=== PATIENT | male | born 2005 | race Caucasian/White ===

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

== ENCOUNTER → 2023-05-11 | Outpatient (CLI) | payer MEDICAID ==
[2023-05-11 20:38] LABS: Thyroid Peroxidase Antibodies <9.0 U/mL (0.0-33.0)
[2023-05-11 21:15] LABS: C Reactive Protein <0.30 mg/dL (0.00-0.80); T4, Free (Free Thyroxine) 1.33 ng/dL (0.83-1.43)
--- NOTE | 2023-05-12 07:59 | XR ---
EXAMINATION TYPE: XR chest 2V DATE OF EXAM: 05/11/2023 COMPARISON: 01/18/2006 INDICATION: Short of breath asthma TECHNIQUE: Frontal and lateral views of the chest are obtained. FINDINGS: The heart size is normal. The pulmonary vasculature is normal. The lungs are clear. IMPRESSION: 1. No acute pulmonary process.
== END | disposition home or self-care (01) ==
LOC: LABWHC1 15:36
PROVIDERS: ATTEND Internal Medicine
DX: E05.90 Thyrotoxicosis, unspecified without thyrotoxic crisis or storm (principal); R00.0 Tachycardia, unspecified; Z80.42 Family history of malignant neoplasm of prostate
CPT/HCPCS: 36415; 71046; 84153; 84439; 84443; 85652; 86140; 86376; 86800

== ENCOUNTER 2024-02-20 13:11 | Inpatient (IN) | payer MEDICAID ==
--- NOTE | 2024-02-20 13:57 | ED ---
General Adult HPI - General Chief complaint: Psychiatric Symptoms Stated complaint: Mental health Time Seen by Provider: 02/20/24 13:12 Source: patient, family Mode of arrival: ambulatory Limitations: no limitations - History of Present Illness Initial comments: Dictation was produced using [employer] dictation software. please excuse any grammatical, word or spelling errors. Chief Complaint: 18-year-old male presents emergency department for psych evaluation. History of Present Illness: Patient 18-year-old male he is a poor historian. Patient apparently has psychiatric history he is here because he states he has not slept. More, states he was supposed to get yesterday to his girlfriend but he is here instead because his girlfriend has problems. Ultimately he reports not getting . Denies any medical issues at this time. Unable to obtain ROS secondary to mental status - Related Data Home Medications Medication Instructions Recorded Confirmed Albuterol Sulfate [Albuterol 1 - 2 puff PO RT-Q6H PRN 02/20/24 02/20/24 Sulfate Hfa] Allergies Allergy/AdvReac Type Severity Reaction Status Date / Time levalbuterol [From Xopenex] Allergy Anaphylaxis Verified 02/20/24 14:31 Review of Systems ROS Statement: Those systems with pertinent positive or pertinent negative responses have been documented in the HPI. ROS Other: All systems not noted in ROS Statement are negative. Past Medical History Past Medical History: No Reported History Past Surgical History: No Surgical Hx Reported Past Psychological History: Anxiety, Bipolar Smoking Status: Current every day smoker, Vaper Past Alcohol Use History: None Reported Past Drug Use History: Marijuana General Exam - General Exam Comments Initial Comments: General: Well-appearing, nontoxic, no acute distress. Head: Normocephalic, atraumatic Eyes: PERRLA, EOMI ENT: Airway patent Chest: Nonlabored breathing Skin: No visual rash, normal skin tone Neuro: Alert and oriented 3 Musculoskeletal: No gross abnormalities Psych: Tangential speech, manic Limitations: no limitations Course Vital Signs 02/20/24 13:13 Temperature 97.3 F L Pulse Rate 78 Respiratory 18 Rate Blood Pressure 131/85 O2 Sat by Pulse 97 Oximetry Medical Decision Making - Medical Decision Making Was pt. sent in by a medical professional or institution (, PA, DEPARTMENT ADMINISTRATOR, urgent care, hospital, or half-way...) When possible be specific @ -No Did you speak to anyone other than the patient for history (EMS, parent, family, police, friend...)? What history was obtained from this source @ -No Did you review nursing and triage notes (agree or disagree)? Why? @ -I reviewed and agree with nursing and triage notes Were old charts reviewed (outside hosp., previous admission, EMS record, old EKG, old radiological studies, urgent care reports/EKG's, half-way records)? Report findings @ -No old charts were reviewed Differential Diagnosis (chest pain, altered mental status, abdominal pain women, abdominal pain men, vaginal bleeding, musculoskeletal, weakness, fever, dyspnea, syncope, headache, dizziness, GI bleed, back pain, seizure, CVA, palpatations, mental health)? @ -Differential Mental Health: Depression, anxiety, bipolar, psychosis, schizophrenia, borderline personality, situational depression, adjustment disorder, behavioral disorder, brain tumor, malingering, substance abuse, encephalopathy, medication reaction, dementia, hypothyroidism, degenerative neurologic disorder, lupus.... This is not meant to be all-inclusive list EKG interpreted by me (3pts min.). @ -None done X-rays interpreted by me (1pt min.). @ -None done CT interpreted by me (1pt min.). @ -None done U/S interpreted by me (1pt. min.). @ -None done What testing was considered but not performed or refused? (CT, X-rays, U/S, labs)? Why? @ -None What meds were considered but not given or refused? Why? @ -None Was smoking cessation discussed for >3mins.? @ -No Were there social determinants of health that impacted care today? How? (Homelessness, low income, unemployed, alcoholism, drug addiction, transportation, low edu. Level, literacy, decrease access to med. care, long-term, rehab)? @ -No Was there de-escalation of care discussed even if they declined (Discuss DNR or withdrawal of care, Hospice)? DNR status @ -No What co-morbidities impacted this encounter? (DM, HTN, Smoking, COPD, CAD, Cancer, CVA, ARF, Chemo, Hep., AIDS, mental health diagnosis, sleep apnea, morbid obesity)? @ -None Was patient admitted / discharged? Hospital course, mention meds given and route, prescriptions, significant lab abnormalities, going to OR and other pertinent info. @ -18-year-old male with acute psychosis. Vital signs stable. Patient has no medical complaints. Patient medically cleared for EPS evaluation. patient acutely psychotic and given Geodon. Clinical certification document completed. Patient be admitted to inpatient psych Did you discuss the management of the patient with other professionals (professionals i.e. , PA, DEPARTMENT ADMINISTRATOR, lab, RT, psych nurse, social science professor, thread grinder, teacher, aoc director intelligence officer, case reviewer)? Give summary @ -No Was critical care preformed (if so, how long)? @ -No Undiagnosed new problem with uncertain prognosis? @ -No Drug Therapy requiring intensive monitoring for toxicity (Heparin, Nitro, Insulin, Cardizem)? @ -No Were any procedures done? @ -No Diagnosis/symptom? Acute, or Chronic, or Acute on Chronic? Uncomplicated (without systemic symptoms) or Complicated (systemic symptoms)? @ -Psychosis Side effects of treatment? @ -No Exacerbation, Progression, or Severe Exacerbation? @ -No Poses a threat to life or bodily function? How? (Chest pain, USA, SC, pneumonia, PE, COPD, DKA, ARF, appy, cholecystitis, CVA, Diverticulitis, Homicidal, Suicidal, threat to staff... and all critical care pts) @ -yes - Lab Data Lab Results 02/20/24 Range/Units 14:00 Urine Opiates Screen Not Detected (NotDetected) Ur Oxycodone Screen Not Detected (NotDetected) Urine Methadone Screen Not Detected (NotDetected) Ur Barbiturates Screen Not Detected (NotDetected) U Tricyclic Antidepress Not Detected (NotDetected) Ur Phencyclidine Scrn Not Detected (NotDetected) Ur Amphetamines Screen Not Detected (NotDetected) U Methamphetamines Scrn Not Detected (NotDetected) U Benzodiazepines Scrn Not Detected (NotDetected) Urine Cocaine Screen Not Detected (NotDetected) U Marijuana (THC) Screen Detected H (NotDetected) Disposition Clinical Impression: Psychosis Disposition: ADMITTED IP TO THIS HOSP Condition: Fair Referrals: Jose M Asif MD [Primary Care Provider] - 1-2 days Decision Time: 15:39
[2024-02-20 14:32] LABS: Amphetamine Screen,Urine Not Detected (NotDetected); Barbiturate Screen,Urine Not Detected (NotDetected); Benzodiazepines Screen,Urine Not Detected (NotDetected); Cocaine Screen,Urine Not Detected (NotDetected); Methadone Screen, Urine Not Detected (NotDetected); Opiate Screen,Urine Not Detected (NotDetected); Oxycodone Screen, Urine Not Detected (NotDetected); Phencyclidine Screen,Urine Not Detected (NotDetected); Tricyclic Antidepressant,Urine Not Detected (NotDetected); Urn Cannabinoid Scrn Detected (NotDetected)
[2024-02-20] MEDS: ZIPRASIDONE 20 MG VIAL IM STA ×2 (15:15→18:30)
[2024-02-20] MEDS: ZIPRASIDONE 40 MG CAP PO STA (15:16)
[2024-02-20] MEDS ORDERED: LORazepam 2 MG/ML INJ IM PRN (17:13)
[2024-02-20] MEDS ORDERED: MAGNESIUM HYDROXIDE 2,400 MG/30 ML CUP PO PRN (17:13)
[2024-02-20] MEDS ORDERED: HALOPERIDOL LACTATE 5 MG/ML 1 ML VIAL IM PRN (17:13)
[2024-02-20] MEDS ORDERED: OLANZapine ODT 5 MG TAB PO PRN (17:19)
[2024-02-20] MEDS: LORazepam 1 MG TAB PO PRN (19:09)
[2024-02-21 00:57] LABS: Appearance,Urine Turbid (Clear); Bacteria,Urine Rare /hpf; Bilirubin,Urine Negative (Negative); Blood,Urine Negative (Negative); Calcium Oxalate Crystals,Urine Occasional /hpf; Color,Urine Yellow; Glucose,Urine (UA) Negative (Negative); Ketones,Urine 2+ (Negative); Leukocyte Esterase,Urine Small (Negative); Mucus,Urine Many /hpf; Nitrite,Urine Negative (Negative); Protein,Urine Trace (Negative); RBC,Urine 1 /hpf (0-5); Urobilinogen,Urine <2.0 mg/dL (<2.0); WBC,Urine 17 /hpf (0-5)
[2024-02-21 12:22] LABS: ALT 21 U/L (4-49); AST 36 U/L (17-59); African American GFR (CKD) >90 (>60 ml/min/1.73 sqM); Albumin 5.5 g/dL (3.5-5.0); Alkaline Phosphatase 97 U/L (38-126); Anion Gap 12 mmol/L; Blood Urea Nitrogen 13 mg/dL (9-20); Calcium 10.6 mg/dL (8.4-10.2); Carbon Dioxide 21 mmol/L (22-30); Chloride 105 mmol/L (98-107); Glucose 123 mg/dL (74-99); Non-African American GFR(CKD) >90 (>60 ml/min/1.73 sqM); Potassium 4.2 mmol/L (3.5-5.1); Sodium 138 mmol/L (137-145); Total Bilirubin 0.7 mg/dL (0.2-1.3); Total Protein 8.7 g/dL (6.3-8.2)
[2024-02-21 12:46] LABS: Basophils % (A) 0 %; Eosinophils % (A) 0 %; HCT 48.5 % (39.0-53.0); HGB 16.4 gm/dL (13.0-17.5); Lymphocytes # (A) 1.3 k/uL (1.0-4.8); Lymphocytes % (A) 16 %; MCH 30.7 pg (25.0-35.0); MCHC 33.9 g/dL (31.0-37.0); MCV 90.6 fL (80.0-100.0); Mean Platelet Volume 7.7; Monocytes # (A) 0.5 k/uL (0-1.0); Monocytes % (A) 6 %; Neutrophils # (A) 6.4 k/uL (1.3-7.7); Neutrophils % (A) 77 %; Platelet Count 334 k/uL (150-450); RBC 5.35 m/uL (4.30-5.90); RDW 12.5 % (11.5-15.5); WBC 8.4 k/uL (4.0-11.0)
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
[2024-02-21] MEDS: ARIPiprazole 5 MG TAB PO SCH (13:15)
[2024-02-21] MEDS: haloperidoL 5 MG TAB PO PRN (15:05)
[2024-02-21] MEDS: LORazepam 1 MG TAB PO PRN (15:07)
[2024-02-21] MEDS: LORazepam 2 MG/ML INJ IM STA (16:44)
[2024-02-21] MEDS ORDERED: ZIPRASIDONE 20 MG VIAL IM PRN (18:01)
[2024-02-21 19:47] LABS: Chol/HDL Ratio 3.54 Ratio; LDL Cholesterol,Calculated 89.2 mg/dL (0.0-131.0); VLDL Calculation 13.36 mg/dL (5.00-40.00)
[2024-02-22] MEDS: IBUPROFEN 600 MG TAB PO PRN (03:16)
[2024-02-22] MEDS: traZODone HCL 100 MG TAB PO SCH (03:28)
--- NOTE | 2024-02-22 11:27 | P.PN ---
Progress Note - Text Progress Note Date: 02/22/24 Interval History: Patient was seen wandering the hallways and was directable and agreeable to ari cohen with check writer. Patient speaks in a very matter of fact tone. He states that he is better than yesterday, and his mind is clear today. He claims that he is going to all groups, and interacting with peers on the unit, to "help them". He complains of the rules on the unit, but offers no complaints about the medication. He states he is sleeping well at night, and that his appetite is good. At this time patient denies any suicidal or homical ideations, intent or plan. Patient denies any auditory, visual hallucinations and denies any paranoia or delusions. Patient denies any side effects from the medications and has been compliant with meds. MENTAL STATUS EXAM: General Appearance: Patient appears to be thin, stated age is alert, directable, and attempts to cooperate]. Patient appears to have fair hygiene and grooming. Dressed casually. Behavior: Patient is seated without any agitated behavior. mildly improving Speech: Patient's speech is fluent and nonpressured. Hyperverbal, zeng tone Mood/Affect: Patient reports their mood is better, affect is congruent and constricted. mildly improving Suicidality/Homicidality: Patient denies having any homicidal ideation intent or plan. Denies any suicidal ideations intent or plan Perceptions: Patient denies any visual hallucinations and denies any auditory hallucinations Though content/process: [There is evidence of any delusional thought content and thought process is mildly improving Desha Memory and concentration: AOX3, grossly intact for the purposes of this session. easier to redirect Judgment and insight: Poor, improving mildly IMPRESSIONS: psychosis, unspecified Cannabis use disorder PLAN: -Patient is admitted under involuntary status to MHU for stabilization of psychiatric symptoms and safety. Patient has not signed adult voluntary form or medication consent and is placed in patient's chart. A second certification was completed and along with petition will be filed for court. -Medications : increase Abilify 10 mg po daily for psychosis/mood stabilization, trazodone 100mg qhs for sleep -Ativan and Haldol PRN for agitation/aggression -SW on board for discharge planning. Encourage patient to participate in groups to work on coping skills. Deferral is 02/22, full hearing is 03/01
[2024-02-22] MEDS: ACETAMINOPHEN TAB 325 MG TAB PO PRN (13:36)
[2024-02-23] MEDS: ARIPiprazole 10 MG TAB PO SCH (07:54)
[2024-02-23] MEDS: MAG HYDROX/AL HYDROX/SIMETH 355 ML BOTTLE PO PRN (08:56)
[2024-02-23] MEDS: ALBUTEROL INHALER 60 PUFF/8 GM INHALER (MHU) INHALATION PRN (08:56)
--- NOTE | 2024-02-23 10:04 | P.PN ---
Progress Note - Text Progress Note Date: 02/23/24 Interval History: Patient was seen wandering the hallways and was directable and agreeable to sp williank with policy writer typist. Patient states that he is feeling a bit nauseated today. He states that after breakfast, he vomited. Client Associate will order Zofran to help with the nausea. Patient agreeable. Patient is attending groups, and being visible on the unit, interacting with peers. Patient states he is planning on deferring with his compliance attorney today. less confrontational today and less intrusive, He states he is sleeping well at night, and that his appetite is good. At this time patient denies any suicidal or homicidal ideations, intent or plan. Patient denies any auditory, visual hallucinations and denies any paranoia or delusions. Patient denies any side effects from the medications and has been compliant with meds. MENTAL STATUS EXAM: General Appearance: Patient appears to be thin, stated age is alert, directable, and attempts to cooperate. Patient appears to have fair hygiene and grooming. Dressed casually. Behavior: Patient is seated without any agitated behavior. mildly improving. Less confrontational today. Speech: Patient's speech is fluent and nonpressured. zeng tone, mildly improving Mood/Affect: Patient reports their mood is better, affect is congruent and constricted. mildly improving Suicidality/Homicidality: Patient denies having any homicidal ideation intent or plan. Denies any suicidal ideations intent or plan Perceptions: Patient denies any visual hallucinations and denies any auditory hallucinations Though content/process: There is evidence of any delusional thought content and thought process is mildly improving . Focused on discharge Memory and concentration: AOX3, grossly intact for the purposes of this session. easier to redirect Judgment and insight: Poor, improving mildly IMPRESSIONS: psychosis, unspecified Cannabis use disorder PLAN: -Patient is admitted under involuntary status to MHU for stabilization of psychiatric symptoms and safety. Patient has not signed adult voluntary form or medication consent and is placed in patient's chart. A second certification was completed and along with petition will be filed for court. -Medications :Abilify 10 mg po daily for psychosis/mood stabilization, trazodone 100mg qhs for sleep, Add Zofran prn for nausea. -Ativan and Haldol PRN for agitation/aggression -SW on board for discharge planning. Encourage patient to participate in groups to work on coping skills. Deferral is 02/22, full hearing is 03/01.
[2024-02-23] MEDS: ONDANSETRON 4 MG TAB PO PRN ×2 (10:10→18:26)
--- NOTE | 2024-02-23 17:04 | P.CONS ---
History of Present Illness - Reason for Consult Consult date: 02/23/24 Medical management Requesting physician: hCarly Matt - History of Present Illness Dictation by Dr. Asif Medical consult Reason for the consult medical management. Patient admitted to the hospital on the mental health department under care of Dr. Charly flores the psychiatrist with the underlying acute psychosis. 18 years old white male with a history of asthma since childhood and he has been on medication for inhalation therapy to control. Patient has been stable general condition medically however he had issues with his girlfriend who planned to get to her and some confusion some argument Change of his mood with the underlying aggression and psychosis admitted to the hospital under care of Dr. Charly Flores, psychiatrist Patient seen and evaluated today when I got the consult today. Patient complaining [id number] and he is young, he had also history of exacerbation of wheezes with the asthma with environmental exposure. Was maintained until he came to the hospital and he felt palpitation and chest tightness with the wheezing. Family history he has 1 brother older than him stable His dad and his mom . 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 Patient does not have allergy to ventilating inhaler and will resume his inhalation therapy and will as the Symbicort discus as well as been using ventilating inhaler HFA 2 puffs 4 times daily as needed. Past medical history: Stable with a history of asthma Review of the record found that he had marijuana which is now is available everywhere in town because of no illegal "contributing to affect on the p opulation with the buying marijuana for recreation or to feel better. On exam: Patient is ambulatory, conscious alert oriented x 3 with multiple complaints. Head was normocephalic atraumatic oropharynx negative natural teeth, normal hearing, extraocular muscle movement is intact Neck supple no JVD no thyromegaly no lymphadenopathy trachea midline Chest: Clear with normal breath sound occasional wheezing and we will be starting his medication. Heart apparently had history of with the excitation tachycardia currently stable general condition PMI in the fifth intercostal space normal S1-S2 no gallop. Abdomen soft positive bowel sounds he stated that he has no bowel movement with constipation. Will start him on stool softener Extremities no edema and positive pulses. Neurologically no lateralizing sign no tremors normal gait Assessment: 1. Acute episode of psychosis secondary to argument with his girlfriend. #2 underlying depression versus bipolar consideration that would be left up to the psychiatrist #3 asthma with a history of asthma since childhood has been using medication with the stability. 4. He had nausea and vomiting and on the exam no evidence of the reason could be associated with medication. 5. Musculoskeletal pain generalized which is could be presentation of his psychiatric problem versus fibromyalgia. Plan: 1. Will resume his home medication #2 start them on the ventroline inhaler HFA 90 mcg 2 puffs 4 times daily as needed 2. Restart on Symbicort discus twice a day 3. Adjust the Zofran for the nausea and vomiting to 4 mg every 6 hour as needed for nausea and vomiting. 4. Thank you for the consult 5. Please call me if you have any fourth problem medically with the patient and will follow with you thank you Past Medical History Past Medical History: No Reported History History of Any Multi-Drug Resistant Organisms: None Reported Past Surgical History: No Surgical Hx Reported Past Anesthesia/Blood Transfusion Reactions: No Reported Reaction Past Psychological History: Anxiety, Bipolar Smoking Status: Current every day smoker, Vaper Past Alcohol Use History: None Reported Past Drug Use History: Marijuana Medications and Allergies Home Medications Medication Instructions Recorded Confirmed Type Albuterol Sulfate [Albuterol 1 - 2 puff PO RT-Q6H PRN 02/20/24 02/20/24 History Sulfate Hfa] Allergies Allergy/AdvReac Type Severity Reaction Status Date / Time levalbuterol [From Xopenex] Allergy Anaphylaxis Verified 02/20/24 14:31 peanut Allergy Unknown Verified 02/20/24 17:09 shellfish derived [Shellfish] Allergy Unknown Verified 02/20/24 17:09 Physical Exam Vitals: Vital Signs Temp Pulse Resp BP Pulse Ox 02/23/24 07:57 98.4 F 92 20 138/87 98 Results CBC & Chem 7: 02/21/24 11:36 02/21/24 11:36
[2024-02-23] MEDS: LORATADINE 10 MG TAB PO SCH (17:08)
[2024-02-23] MEDS: ALBUTEROL HFA INHALER INHALATION SCH (20:05)
[2024-02-23] MEDS: SYMBICORT 80-4.5 MCG INHALER INHALATION SCH (20:31)
--- NOTE | 2024-02-24 11:30 | P.PN ---
Progress Note - Text Progress Note Date: 02/24/24 Interval History: Patient was seen wandering the hallways and was directable and agreeable to sp vicki with singer songwriter. Patient states that he is feeling great today. He does state that he is a little constipated, but he states it is manageable. Solar Installer Pv offered milk of magnesia, patient states he would use it if he needs it. He states the nausea is subsided. Patient is attending groups, and being visible on the unit, interacting with peers. Patient deferred with his civil litigation attorney. Less confrontational today and less intrusive, He states he is sleeping well at night, and that his appetite is good. Solar Installer Pv spoke with patient about receiving a BECERRIL, patient agreeable. Patient is very focused on discharge. Solar Installer Pv explained to the patient about safe discharge. Patient complains of back pain. Ordered hot packs. At this time patient denies any suicidal or homicidal ideations, intent or plan. Patient denies any auditory, visual hallucinations and denies any paranoia or delusions. Patient denies any side effects from the medications and has been compliant with meds. MENTAL STATUS EXAM: General Appearance: Patient appears to be thin, stated age is alert, directable, and attempts to cooperate. Patient appears to have fair hygiene and grooming. Dressed casually. Behavior: Patient is seated without any agitated behavior. mildly improving. Less confrontational today. Speech: Patient's speech is fluent and nonpressured. zeng tone, mildly improving, very talkative. Mood/Affect: Patient reports their mood is better, affect is congruent and constricted. mildly improving Suicidality/Homicidality: Patient denies having any homicidal ideation intent or plan. Denies any suicidal ideations intent or plan Perceptions: Patient denies any visual hallucinations and denies any auditory hallucinations Though content/process: There is evidence of any delusional thought content and thought process is mildly improving . Focused on discharge Memory and concentration: AOX3, grossly intact for the purposes of this session. easier to redirect Judgment and insight: Poor, improving mildly IMPRESSIONS: psychosis, unspecified Cannabis use disorder PLAN: -Patient is admitted under involuntary status to MHU for stabilization of psychiatric symptoms and safety. Patient has not signed adult voluntary form or medication consent and is placed in patient's chart. -Medications : change Abilify 10 mg po qhs for psychosis/mood stabilization, trazodone 100mg qhs for sleep, Zofran prn for nausea. transition onto a BECERRIL to ensure compliance. -Ativan and Haldol PRN for agitation/aggression -SW on board for discharge planning. Encourage patient to participate in groups to work on coping skills. Patient did defer with his civil litigation attorney. will likely discharge early next week once patient is transitioned onto BECERRIL.
[2024-02-24 12:34] LABS: Appearance,Urine Clear (Clear); Bilirubin,Urine Negative (Negative); Blood,Urine Negative (Negative); Color,Urine Colorless; Glucose,Urine (UA) Negative (Negative); Ketones,Urine Negative (Negative); Leukocyte Esterase,Urine Negative (Negative); Nitrite,Urine Negative (Negative); PH, Urine 7.5 (5.0-8.0); Protein,Urine Negative (Negative); Specific Gravity,Urine 1.007 (1.001-1.035); Urobilinogen,Urine <2.0 mg/dL (<2.0)
[2024-02-24 18:28] LABS: Glucose,Whole Blood 146 mg/dL (70-110)
[2024-02-24] MEDS: SENNOSIDES 8.6 MG TAB PO PRN (18:55)
[2024-02-24 19:45] LABS: Glucose,Whole Blood 97 mg/dL (70-110)
[2024-02-24] MEDS: ARIPiprazole 15 MG TAB PO SCH (19:50)
[2024-02-24] MEDS ORDERED: ARIPiprazole 10 MG TAB PO SCH (21:00)
[2024-02-25 03:01] LABS: Protein, Total 7.6 g/dL (6.2-8.2)
[2024-02-25 07:17] LABS: Glucose,Whole Blood 101 mg/dL (70-110)
[2024-02-25] MEDS: MENTHOL-CAMPHOR LOTION 222 APPLIC/222 ML BOTTLE TOPICAL PRN (10:53)
--- NOTE | 2024-02-25 11:13 | P.PN ---
Progress Note - Text Progress Note Date: 02/25/24 Interval History: Patient was seen wandering the hallways and was directable and agreeable to sp vicki with underwriter mortgage loan. Patient states that he is feeling ok today. He does complain of neck pain, getting some relief with hot packs, underwriter mortgage loan also ordered menthol, prn. Patient is attending groups, and being visible on the unit, interacting with peers. Patient deferred with his securities attorney. Less confrontational today and less intrusive, He states he is sleeping well at night, and that his appetite is good. Gas Engine Performance Engineer spoke with patient about receiving a BECERRIL, patient agreeable. Patient is very focused on discharge. Gas Engine Performance Engineer explained to the patient about safe discharge. Patient is caring for his ADL's, showering, etc. At this time patient denies any suicidal or homicidal ideations, intent or plan. Patient denies any auditory, visual hallucinations and denies any paranoia or delusions. Patient denies any side effects from the medications and has been compliant with meds. MENTAL STATUS EXAM: General Appearance: Patient appears to be thin, stated age is alert, directable, and attempts to cooperate. Patient appears to have fair hygiene and grooming. Dressed casually. Behavior: Patient is seated without any agitated behavior. mildly improving. Less confrontational today. Speech: Patient's speech is fluent and nonpressured. mildly improving, very talkative. mildly improving Mood/Affect: Patient reports their mood is ok, affect is congruent and constricted. mildly improving Suicidality/Homicidality: Patient denies having any homicidal ideation intent or plan. Denies any suicidal ideations intent or plan Perceptions: Patient denies any visual hallucinations and denies any auditory hallucinations Though content/process: There is evidence of any delusional thought content and thought process is mildly improving . Focused on discharge Memory and concentration: AOX3, grossly intact for the purposes of this session. easier to redirect Judgment and insight: improving mildly IMPRESSIONS: psychosis, unspecified Cannabis use disorder PLAN: -Patient is admitted under involuntary status to MHU for stabilization of psychiatric symptoms and safety. Patient has not signed adult voluntary form or medication consent and is placed in patient's chart. -Medications :increase Abilify 20 mg po qhs for psychosis/mood stabilization, add depakote 500 mg qhs for mood stabilization. trazodone 100mg qhs for sleep, Zofran prn for nausea. transition onto a BECERRIL to ensure compliance. menthol lotion prn for neck pain -Ativan and Haldol PRN for agitation/aggression -SW on board for discharge planning. Encourage patient to participate in groups to work on coping skills. Patient did defer with his securities attorney. will likely discharge early next week once patient is transitioned onto BECERRIL. SW to call family early next week after visitation for assessment of progress.
[2024-02-25 12:46] LABS: Glucose,Whole Blood 110 mg/dL (70-110)
[2024-02-25 22:03] LABS: Albumin 4.85 g/dL (3.80-4.90); Gamma Globulin 1.12 g/dL (0.70-1.50)
[2024-02-25] MEDS: DIVALPROEX ER 500 MG TAB.ER.24H PO SCH (22:20)
--- NOTE | 2024-02-26 12:37 | P.PN ---
Progress Note - Text Progress Note Date: 02/26/24 Interval History: Patient was seen wandering the hallways and was directable and agreeable to ari cohen with fiction writer. Patient reports having pain" about my body "for the past 7 years. He is quite tangential and hyperverbal during assessment. He believes that nobody understands his mental illness and that people are against him. He appears internally agitated and admits to feeling restless. He is agreeable with being started on propranolol. Also discussed increase in Depakote with which patient is agreeable. Patient reports numerous grandiose thoughts in a tangential manner and often checks with the provider if this provider believes in his statements. He is pleasant throughout interaction and is cooperative assessment. He denies trouble with sleep. He reports feeling tired during the daytime and fair appetite. At this time patient denies any suicidal or homicidal ideations, intent or plan. Patient denies any auditory, visual hallucinations and denies any paranoia or delusions. Patient denies any side effects from the medications and has been compliant with meds. Vital Signs Temp 97.6 F 02/26/24 11:00 Pulse 105 H 02/26/24 11:00 Resp 18 02/26/24 11:00 BP 131/65 02/26/24 11:00 Pulse Ox 99 02/26/24 11:00 FiO2 MENTAL STATUS EXAM: General Appearance: Patient appears to be thin, stated age is alert, directable, and attempts to cooperate. Patient appears to have fair hygiene and grooming. Dressed casually. Behavior: Patient is seated without any agitated behavior. mildly improving. Speech: Patient's speech is fluent and nonpressured. hyperverbal Mood/Affect: Patient reports their mood is ok, affect is congruent and constricted. mildly improving Suicidality/Homicidality: Patient denies having any homicidal ideation intent or plan. Denies any suicidal ideations intent or plan Perceptions: Patient denies any visual hallucinations and denies any auditory hallucinations Though content/process: tangential, grandiose at times. Focused on discharge Memory and concentration: AOX3, grossly intact for the purposes of this session. easier to redirect Judgment and insight: improving mildly IMPRESSIONS: psychosis, unspecified Cannabis use disorder PLAN: -Patient is admitted under involuntary status to [facility]HU for stabilization of psychiatric symptoms and safety. Patient has not signed adult voluntary form or medication consent and is placed in patient's chart. -Medications : Abilify 20 mg po qhs for psychosis/mood stabilization, increase depakote to 750 mg qhs for mood stabilization. trazodone 100mg qhs for sleep, Zofran prn for nausea. transition onto a BECERRIL to ensure compliance. Add propranolol 20 mg daily for akathisia - Discussed risks, benefits, side effects, and alternatives of above meds -Ativan and Haldol PRN for agitation/aggression -SW on board for discharge planning. Encourage patient to participate in groups to work on coping skills. Patient did defer with his erisa attorney. will likely discharge early next week once patient is transitioned onto BECERRIL. SW to call family early next week after visitation for assessment of progress.
[2024-02-26] MEDS: PROPRANOLOL 20 MG TAB PO SCH (13:37)
[2024-02-26] MEDS: DIVALPROEX ER 250 MG TAB.ER.24H PO SCH (22:46)
[2024-02-27] MEDS ORDERED: LOPERAMIDE 2 MG CAP PO PRN (11:09)
--- NOTE | 2024-02-27 11:14 | P.PN ---
Progress Note - Text Progress Note Date: 02/27/24 Interval History: Patient was seen wandering the hallways and was directable and agreeable to ari cohen with typewriter assembler. He states that he has been compliant with medications despite his belief that he does not need to be on them. He reports having diarrhea yesterday and today since having taken milk of magnesia. He requested something for the diarrhea and is agreeable with Imodium. He denies other concerns with medications and is agreeable with receiving BECERRIL tomorrow. He reports that his anxiety is improved and denies any mood concerns today. He endorses fair appetite and good sleep last night. At this time patient denies any suicidal or homicidal ideations, intent or plan. Patient denies any auditory, visual hallucinations and denies any paranoia or delusions. Patient denies any side effects from the medications and has been compliant with meds. Vital Signs Temp 97.8 F 02/27/24 09:00 Pulse 98 02/27/24 09:00 Resp 18 02/27/24 09:00 BP 143/79 02/27/24 09:00 Pulse Ox 98 02/27/24 09:00 FiO2 Intake & Output 02/26/24 02/27/24 02/27/24 18:59 06:59 18:59 Weight 52.3 kg MENTAL STATUS EXAM: General Appearance: Patient appears to be thin, stated age is alert, directable, and attempts to cooperate. Patient appears to have fair hygiene and grooming. Dressed casually. Behavior: Patient is seated without any agitated behavior. Slightly restless Speech: Patient's speech is fluent and nonpressured. hyperverbal Mood/Affect: Patient reports their mood is ok, affect is congruent and constricted. mildly improving Suicidality/Homicidality: Patient denies having any homicidal ideation intent or plan. Denies any suicidal ideations intent or plan Perceptions: Patient denies any visual hallucinations and denies any auditory hallucinations Though content/process: tangential, grandiose at times. Focused on discharge Memory and concentration: AOX3, grossly intact for the purposes of this session. easier to redirect Judgment and insight: improving mildly IMPRESSIONS: psychosis, unspecified Cannabis use disorder PLAN: -Patient is admitted under involuntary status to MHU for stabilization of psychiatric symptoms and safety. Patient has not signed adult voluntary form or medication consent and is placed in patient's chart. -Medications : Abilify 20 mg po qhs for psychosis/mood stabilization, depakote 750 mg qhs for mood stabilization. trazodone 100mg qhs for sleep, Zofran prn for nausea. transition onto a BECERRIL to ensure compliance. Propranolol 20 mg daily for akathisia - Discussed risks, benefits, side effects, and alternatives of above meds -Ativan and Haldol PRN for agitation/aggression -SW on board for discharge planning. Encourage patient to participate in groups to work on coping skills. Patient did defer with his banking attorney. will likely discharge early next week once patient is transitioned onto BECERRIL. SW to call family early next week after visitation for assessment of progress.
[2024-02-28 07:28] VITALS: RESP 16
--- NOTE | 2024-02-28 11:09 | P.PN ---
Progress Note - Text Progress Note Date: 02/28/24 Interval History: Patient was seen wandering the hallways and was directable and agreeable to sp vicki with jingle writer. Patient states that he is not feeling well since he has been here. He continues to have racing thoughts, hyperverbal. He states he has bowel problems, stomach problems, head ache. Patient is very focused on discharge. He is demanding discharge. Hotel Front Office Manager spoke with patient about changing his medications. Patient is frustrated, and states that he does not want to change the medications. Hotel Front Office Manager spoke with the patient about the importance of compliance of medications, and stated that if he is having side effects then he will stop taking the medications after discharge. He states he is sleeping well at night, and that his appetite is ok. Patient is caring for his ADL's, showering, etc. At this time patient denies any suicidal or homicidal ideations, intent or plan. Patient denies any auditory, visual hallucinations and denies any paranoia or delusions. Patient denies any side effects from the medications and has been compliant with meds. MENTAL STATUS EXAM: General Appearance: Patient appears to be thin, stated age is alert, directable, and attempts to cooperate. Patient appears to have fair hygiene and grooming. Dressed casually. Behavior: Patient is seated without any agitated behavior. Slightly restless, confrontational. Speech: Patient's speech is fluent and nonpressured. hyperverbal Mood/Affect: Patient reports their mood is ok, affect is congruent and cons tricted. mildly improving Suicidality/Homicidality: Patient denies having any homicidal ideation intent or plan. Denies any suicidal ideations intent or plan Perceptions: Patient denies any visual hallucinations and denies any auditory hallucinations Though content/process: tangential, grandiose at times. Focused on discharge, racing thoughts. Memory and concentration: AOX3, grossly intact for the purposes of this session. Judgment and insight: improving mildly IMPRESSIONS: psychosis, unspecified Cannabis use disorder PLAN: -Patient is admitted under involuntary status to MHU for stabilization of psychiatric symptoms and safety. Patient has not signed adult voluntary form or medication consent and is placed in patient's chart. -Medications : decrease Abilify 10 mg po qhs for psychosis/mood stabilization due to possible a/e, increase depakote 1000 mg qhs for mood stabilization. trazodone 100mg qhs for sleep, Zofran prn for nausea. transition onto a BECERRIL to ensure compliance. Propranolol 20 mg daily for akathisia - Discussed risks, benefits, side effects, and alternatives of above meds -Ativan and Haldol PRN for agitation/aggression -SW on board for discharge planning. Encourage patient to participate in groups to work on coping skills. Patient did defer with his district attorney. would like to transition onto BECERRIL. will await until patient is psychiatrically stable to discharge back home.
--- NOTE | 2024-02-28 16:37 | P.PN ---
Subjective Progress Note Date: 02/28/24 Principal diagnosis: Patient called the office from the psych floor indicating that he had stomach issue with the underlying abdominal discomfort and diarrhea and prior to that constipation. Patient on multiple psychiatric medication. Also patient was placed on medication for stomach upset however is not helping. This progress note Date of service 02/28/[address] Asif. Patient seen and evaluated and examined and discussed with the patient in detail. Vital signs today indicating temperature 98.3 F temporal Respiratory rate 16/min nonlabored Pulse rate 72 bpm no arrhythmias Blood pressure 123/75 with a mean 91 Oxygen saturation 99% on room air. As patient seen and evaluated [id number] discussed with him. Patient had history of using marijuana started sporadically then become regularly and apparently his girlfriend buying it as she is 21 years old could be for several reason for her menses pain but also for recreation and she initiated with Mr. Sriram Dominguez her boyfriend. Marijuana is easy to buy and get and stay to [place] as it is legalized. I explained to the patient and discussed with him that marijuana has causing with the continuation abdominal pain and feeling of nausea and vomiting if you do not feel it all the time and if you delay for 6 to 8-hour you may feel stomach upset also if you stop marijuana you could feel withdrawal with the nausea and vomiting and abdominal pain. In regard of his symptoms of started with constipation followed by diarrhea and effect of currently not using the marijuana as probably passing through wi thdrawal effect. But at the same time, he has been supplemented with milk of magnesia and as well Maalox which both of them can cause loose bowel and diarrhea, also discussed the peristalsis needs the colon to be filled up with the presence of fiber and water drinking. On admission patient found to have mild dehydration, with elevated protein, calcium, and random blood sugar was also elevated. Subsequently in the hospital stay patient repeated laboratory found that his fasting blood sugar is normal, hemoglobin A1c is normal, with the hydration orally his calcium went down to normalize and ionized calcium was normal. Because of the protein was high we did electrophoresis and came back negative I did discuss with the patient that he needs to hydrate himself with water his renal function is stable. And no evidence of hypertension. And he should stop smoking or eating marijuana derivatives. On exam: Patient is conscious alert oriented x 3 ambulatory, his insight is clear, no evidence of suicidal ideation. Head was normocephalic atraumatic, normal hearing, normal oropharynx, normal fa cial, nose ear is normal Neck was supple no JVD no thyromegaly no lymphadenopathy trachea midline. Chest is clear no wheezes no rhonchi's and the patient with a history of asthma however no exacerbation. Heart regular sinus rhythm and he is stable no chest pain no cardiac arrhythmia Abdomen he had felt cramping but but no physical finding on the abdominal exam, no tenderness no enlarged liver or spleen no suprapubic tenderness. Extremities no edema positive pulses. Neurologically stable no lateralizing sign no neurodeficit ambulatory. Assessment: GI symptoms is related to marijuana substance use which patient currently not in the use of it as he is in the hospital and advised to stop completely History of asthma however stable with the current treatment Gastritis with the symptoms of nausea and vomiting in association with his current multiple psychiatric medication as well as the withdrawal of the marijuana use Plan: 1. Starting him on Pepcid 20 mg twice a day for 1 week 2. Start on sucralfate 3 times a day 3. FiberCon twice a day Advanced water intake as tolerated 4. I discontinued the presence of value MiraLAX and the magnesium and we will be following the patient as well as if he discharged home we will continue follow-up as outpatient Will follow with you please call me if you have any questions Objective - Vital Signs Vital signs: Vital Signs Temp 98.3 F 02/28/24 06:40 Pulse 72 02/28/24 06:40 Resp 16 02/28/24 06:40 BP 123/75 02/28/24 06:40 Pulse Ox 99 02/28/24 06:40 FiO2 Intake & Output 02/27/24 02/28/24 02/28/24 18:59 06:59 18:59 Weight 52.3 kg - Labs CBC & Chem 7: 02/21/24 11:36 02/21/24 11:36
[2024-02-28] MEDS: SUCRALFATE 1 GM TAB PO SCH (17:05)
[2024-02-28] MEDS: FAMOTIDINE 20 MG TAB PO SCH (21:18)
[2024-02-28] MEDS: ARIPiprazole 10 MG TAB PO SCH (21:18)
[2024-02-28] MEDS: DIVALPROEX ER 500 MG TAB.ER.24H PO SCH (21:18)
--- NOTE | 2024-02-29 11:23 | P.PN ---
Progress Note - Text Progress Note Date: 02/29/24 Interval History: Patient was seen wandering the hallways and was directable and agreeable to ari cohen with jingle writer. Patient states that he is feeling a bit better today. His loose stools has resolved. Patient states he was feeling quite anxious yesterday, and required PRN Ativan. Patient remains fairly concrete. He is less confrontational today, and more cooperative. Spoke with the patient about receiving a BECERRIL, which will be given tomorrow, 03/01. Patient agreeable. He states he is sleeping well at night, and that his appetite is ok. Patient is caring for his ADL's, showering, etc. At this time patient denies any suicidal or homicidal ideations, intent or plan. Patient denies any auditory, visual hallucinations and denies any paranoia or delusions. Patient denies any side effects from the medications and has been compliant with meds. MENTAL STATUS EXAM: General Appearance: Patient appears to be thin, stated age is alert, directable, and attempts to cooperate. Patient appears to have fair hygiene and grooming. Dressed casually. Behavior: Patient is seated without any agitated behavior. concrete, less confrontational. Speech: Patient's speech is fluent and nonpressured. mildly improving Mood/Affect: Patient reports their mood is ok, affect is congruent and constricted. mildly improving Suicidality/Homicidality: Patient denies having any homicidal ideation intent or plan. Denies any suicidal ideations intent or plan Perceptions: Patient denies any visual hallucinations and denies any auditory hallucinations Though content/process: improving Focused on discharge Memory and concentration: AOX3, grossly intact for the purposes of this session. Judgment and insight: improving mildly IMPRESSIONS: psychosis, unspecified Cannabis use disorder PLAN: -Patient is admitted under involuntary status to [facility] for stabilization of psychiatric symptoms and safety. Patient has not signed adult voluntary form or medication consent and is placed in patient's chart. -Medications :Abilify 10 mg po qhs for psychosis/mood stabilization, depakote 1000 mg qhs for mood stabilization. trazodone 100mg qhs for sleep, Zofran prn for nausea. transition onto a BECERRIL to ensure compliance will likely give first dose tomorrow abilify maintenna. Propranolol 20 mg daily for akathisia -Ativan and Haldol PRN for agitation/aggression -SW on board for discharge planning. Encourage patient to participate in groups to work on coping skills. Patient did defer with his jewelry finisher. Will transition onto BECERRIL given 03/01, discharge if patient is improving psychiatrically.
[2024-02-29] MEDS: traZODone HCL 100 MG TAB PO SCH (20:03)
[2024-02-29] MEDS ORDERED: traZODone HCL 50 MG TAB PO SCH (21:00)
[2024-03-01 08:54] VITALS: TEMP 97.8
--- NOTE | 2024-03-01 11:40 | P.PN ---
Progress Note - Text Progress Note Date: 03/01/24 Interval History: Patient was seen wandering the hallways and was directable and agreeable to sp williank with technical writer and editor. Patient states that he is feeling pretty good today. racing thoughts and flight of ideas are improving. He states he is sleeping well at night, and that his appetite is ok. Patient agreeable to receive BECERRIL today. Patient is caring for his ADL's, showering, etc. At this time patient denies any suicidal or homicidal ideations, intent or plan. Patient denies any auditory, visual hallucinations and denies any paranoia or delusions. Patient denies any side effects from the medications and has been compliant with meds. MENTAL STATUS EXAM: General Appearance: Patient appears to be thin, stated age is alert, directable, and attempts to cooperate. Patient appears to have fair hygiene and grooming. Dressed casually. Behavior: Patient is seated without any agitated behavior. improving Speech: Patient's speech is fluent and nonpressured. improving Mood/Affect: Patient reports their mood is ok, affect is congruent and constricted. mildly improving Suicidality/Homicidality: Patient denies having any homicidal ideation intent or plan. Denies any suicidal ideations intent or plan Perceptions: Patient denies any visual hallucinations and denies any auditory hallucinations Though content/process: improving Focused on discharge Memory and concentration: AOX3, grossly intact for the purposes of this session. Judgment and insight: improving IMPRESSIONS: psychosis, unspecified Cannabis use disorder PLAN: -Patient is admitted under involuntary status to [facility] for stabilization of psychiatric symptoms and safety. -Medications : Abilify 10 mg po qhs for psychosis/mood stabilization, depakote 1000 mg qhs for mood stabilization. trazodone 100mg qhs for sleep, Zofran prn for nausea. add abilify maintenna 400mg IM qmonthly. First dose 03/01, next dose due 03/29. Propranolol 20 mg daily for akathisia -Ativan and Haldol PRN for agitation/aggression -SW on board for discharge planning. Encourage patient to participate in groups to work on coping skills. Patient did defer with his assistant city attorney. BECERRIL given 03/01, discharge if patient reacts well with injection.
[2024-03-01 11:51] VITALS: BMI 19.8
[2024-03-01] MEDS: ARIPiprazole IM 400 MG VIAL (NO COST) PHARMACY STOCK IM SCH (13:33)
[2024-03-02 08:39] VITALS: BP 123/79; PULSE 110
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
== END 2024-03-02 11:40 | disposition home or self-care (01) | DRG 885 ==
LOC: EC 13:11 → 3MHU 17:06
PROVIDERS: ADMIT Psychiatry & Neurology Psychiatry; ATTEND Psychiatry & Neurology Psychiatry
DX: F29 Unspecified psychosis not due to a substance or known physiological condition (principal); E86.0 Dehydration; E03.9 Hypothyroidism, unspecified; F31.9 Bipolar disorder, unspecified; K29.70 Gastritis, unspecified, without bleeding; J45.909 Unspecified asthma, uncomplicated; Z79.890 Hormone replacement therapy; Z79.899 Other long term (current) drug therapy; Z91.010 Allergy to peanuts; Z91.013 Allergy to seafood
CPT/HCPCS: 80053; 80061; 80306; 81001; 81003; 82075; 82330; 83036; 84165; 84166; 84443; 85025; 87635; 93005; 96372; 99285

== ENCOUNTER 2024-03-13 02:34 | Emergency (ER) | payer MEDICAID ==
[2024-03-13 02:43] VITALS: BP 137/83; PULSE 110; RESP 18; TEMP 98.5
--- NOTE | 2024-03-13 03:10 | ED ---
General Adult HPI - General Chief complaint: Urogenital Stated complaint: Unable to urinate Time Seen by Provider: 03/13/24 02:44 Source: family Mode of arrival: wheelchair Limitations: no limitations - History of Present Illness Initial comments: Dictation was produced using [employer] dictation software. please excuse any grammatical, word or spelling errors. Chief Complaint: 18-year-old male with history of psychiatric illness presents to the ER for reported urinary retention and groin pain History of Present Illness: Patient 18-year-old male he is known to the emergency department for bizarre behavior and psychiatric illness. Patient was recently admitted to inpatient psych. He was discharged recently. States that been at home having trouble urinating since being started on new medications. As I evaluated the patient states he urinated right before I spoke with him. States that he has some groin pain. He has been stretching constantly. States that he is improved from a psychiatric standpoint. The ROS documented in this emergency department record has been reviewed and confirmed by me. Those systems with pertinent positive or negative responses have been documented in the HPI. All other systems are other negative and/or noncontributory. - Related Data Previous Rx's Medication Instructions Recorded ARIPiprazole IM [Abilify Maintena] 400 mg IM QMONTHLY #1 each 03/01/24 ARIPiprazole [Abilify] 10 mg PO HS 14 Days #14 tab 03/01/24 Albuterol Sulfate [Albuterol 1 - 2 puff PO RT-Q6H PRN #1 each 03/01/24 Sulfate Hfa] Divalproex ER [Depakote ER] 1,000 mg PO HS 30 Days #60 tab 03/01/24 Famotidine [Pepcid] 20 mg PO BID 30 Days #60 tab 03/01/24 Loratadine [Claritin] 10 mg PO DAILY 30 Days #30 tab 03/01/24 Menthol-Camphor Lotion [Sarna 1 applic TOPICAL BID PRN #1 ml 03/01/24 Lotion 0.5%-0.5%] Ondansetron [Zofran] 4 mg PO DAILY PRN 7 Days #7 tab 03/01/24 Propranolol [Inderal] 20 mg PO DAILY 30 Days #30 tab 03/01/24 Sennosides [Senokot] 8.6 mg PO DAILY PRN 30 Days #30 tab 03/01/24 Sucralfate [Carafate] 1 gm PO BID 30 Days #60 tab 03/01/24 traZODone HCL [Desyrel] 100 mg PO HS 30 Days #30 tab 03/01/24 Allergies Allergy/AdvReac Type Severity Reaction Status Date / Time levalbuterol [From Xopenex] Allergy Anaphylaxis Verified 03/13/24 02:42 peanut Allergy Unknown Verified 03/13/24 02:42 shellfish derived [Shellfish] Allergy Unknown Verified 03/13/24 02:42 Review of Systems ROS Statement: Those systems with pertinent positive or pertinent negative responses have been documented in the HPI. ROS Other: All systems not noted in ROS Statement are negative. Past Medical History Past Medical History: No Reported History History of Any Multi-Drug Resistant Organisms: None Reported Past Surgical History: No Surgical Hx Reported Past Anesthesia/Blood Transfusion Reactions: No Reported Reaction Past Psychological History: Anxiety, Bipolar Smoking Status: Current every day smoker, Vaper Past Alcohol Use History: None Reported Past Drug Use History: Marijuana General Exam - General Exam Comments Initial Comments: PHYSICAL EXAM: General Impression: Alert and oriented x3, not in acute distress HEENT: Normocephalic atraumatic, extra-ocular movements intact, pupils equal and reactive to light bilaterally, mucous membranes moist. Cardiovascular: Heart regular rate and rhythm Chest: Able to complete full sentences, no retractions, no tachypnea Abdomen: abdomen soft, non-tender, non-distended, no organomegaly Musculoskeletal: Pulses present and equal in all extremities, no peripheral edema Motor: no focal deficits noted Neurological: CN II-XII grossly intact, no focal motor or sensory deficits noted Skin: Intact with no visualized rashes Psych: Normal affect and mood Limitations: no limitations Course Vital Signs 03/13/24 02:39 Temperature 98.5 F Pulse Rate 110 H Respiratory 18 Rate Blood Pressure 137/83 O2 Sat by Pulse 98 Oximetry Medical Decision Making - Medical Decision Making Was pt. sent in by a medical professional or institution (, PA, AIRCRAFT STRUCTURAL DESIGN ENGINEER, urgent care, hospital, or fpc...) When possible be specific @ -No Did you speak to anyone other than the patient for history (EMS, parent, family, police, friend...)? What history was obtained from this source @ -No Did you review nursing and triage notes (agree or disagree)? Why? @ -I reviewed and agree with nursing and triage notes Were old charts reviewed (outside hosp., previous admission, EMS record, old EKG, old radiological studies, urgent care reports/EKG's, fpc records)? Report findings @ -No old charts were reviewed Differential Diagnosis (chest pain, altered mental status, abdominal pain women, abdominal pain men, vaginal bleeding, musculoskeletal, weakness, fever, dyspnea, syncope, headache, dizziness, GI bleed, back pain, seizure, CVA, palpatations, mental health)? @ -Not applicable EKG interpreted by me (3pts min.). @ -None done X-rays interpreted by me (1pt min.). @ -None done CT interpreted by me (1pt min.). @ -None done U/S interpreted by me (1pt. min.). @ -None done What testing was considered but not performed or refused? (CT, X-rays, U/S, labs)? Why? @ -None What meds were considered but not given or refused? Why? @ -None Was smoking cessation discussed for >3mins.? @ -No Were there social determinants of health that impacted care today? How? (H omelessness, low income, unemployed, alcoholism, drug addiction, transportation, low edu. Level, literacy, decrease access to med. care, nursing home, rehab)? @ -No Was there de-escalation of care discussed even if they declined (Discuss DNR or withdrawal of care, Hospice)? DNR status @ -No What co-morbidities impacted this encounter? (DM, HTN, Smoking, COPD, CAD, Cancer, CVA, ARF, Chemo, Hep., AIDS, mental health diagnosis, sleep apnea, morbid obesity)? @ -None Was patient admitted / discharged? Hospital course, mention meds given and route, prescriptions, significant lab abnormalities, going to OR and other pertinent info. @ -18-year-old male with history of extensive psychiatric illness presents to the emergency department with mid urine retention and groin pain. Physical examination is benign. Patient is well-known to me as I have seen him before for psychosis. Seems to be improved. Mother reports that his psychosis is much more well-managed since being discharged. Bladder scan is 30. Did you discuss the management of the patient with other professionals (professionals i.e. , PA, AIRCRAFT STRUCTURAL DESIGN ENGINEER, lab, RT, psych nurse, child protective services social worker, probate lawyer, teacher, nuclear security officer, binder caser)? Give summary @ -No Was critical care preformed (if so, how long)? @ -No Undiagnosed new problem with uncertain prognosis? @ -No Drug Therapy requiring intensive monitoring for toxicity (Heparin, Nitro, I nsulin, Cardizem)? @ -No Were any procedures done? @ -No Diagnosis/symptom? Acute, or Chronic, or Acute on Chronic? Uncomplicated (without systemic symptoms) or Complicated (systemic symptoms)? @ -Urinary retention Side effects of treatment? @ -No Exacerbation, Progression, or Severe Exacerbation? @ -No Poses a threat to life or bodily function? How? (Chest pain, [place], [place], pneumonia, PE, COPD, DKA, ARF, appy, cholecystitis, CVA, Diverticulitis, Homicidal, Suicidal, threat to staff... and all critical care pts) @ -No Disposition Clinical Impression: Urinary retention Disposition: HOME SELF-CARE Condition: Good Instructions (If sedation given, give patient instructions): Urinary Retention in Men (ED) Is patient prescribed a controlled substance at d/c from ED?: No Referrals: Jose M Asif MD [Primary Care Provider] - 1-2 days Time of Disposition: 03:31
== END 2024-03-13 03:33 | disposition home or self-care (01) ==
LOC: EC 02:34
DX: R33.9 Retention of urine, unspecified (principal); F17.290 Nicotine dependence, other tobacco product, uncomplicated; Z91.013 Allergy to seafood; Z91.018 Allergy to other foods
CPT/HCPCS: 51798; 99283

== ENCOUNTER → 2024-03-27 | Outpatient (CLI) | payer MEDICAID ==
--- NOTE | 2024-03-27 16:36 | US ---
EXAMINATION TYPE: US groin BILAT DATE OF EXAM: 03/27/2024 COMPARISON: NONE CLINICAL INDICATION: Male, 18 years old with history of R59.0; Patient states right groin pain that m akes it hard to walk, no left sided pain but it is ordered, no palpables, order states for enlarged l ymph nodes TECHNIQUE: Soft tissue groin scan FINDINGS: Right groin: 1.3 x 0.6 x 1.0cm normal appearing lymph node Left groin: 1.6 x 0.9 x 0.7cm normal appearing lymph node IMPRESSION: Normal appearing lymph nodes in the bilateral groin. No suspicious masses.
--- NOTE | 2024-03-28 07:24 | XR ---
EXAMINATION TYPE: XR pelvis AP view DATE OF EXAM: 03/27/2024 CLINICAL HISTORY: pain TECHNIQUE: Single view the pelvis is submitted. FINDINGS: No evidence for fracture, dislocation or bony lesion. Joint spaces are well-preserved. S I joints appear symmetric. IMPRESSION: 1. No acute fracture or dislocation seen. ICD 10 NO FRACTURE, INITIAL EVALUATION
== END | disposition home or self-care (01) ==
LOC: RADUSWWP 16:00
PROVIDERS: ATTEND Internal Medicine
DX: R59.0 Localized enlarged lymph nodes (principal)
CPT/HCPCS: 72170; 76882

== ENCOUNTER → 2025-03-13 | Outpatient (CLI) | payer MEDICAID, OTHER ==
[2025-03-13 19:31] LABS: Anion Gap 16.70 mmol/L (4.00-12.00); BUN/Creat Ratio 15.14 Ratio (12.00-20.00); Blood Urea Nitrogen 10.6 mg/dL (9.0-27.0); Calcium 8.9 mg/dL (8.7-10.3); Carbon Dioxide 21.3 mmol/L (21.6-31.8); Chloride 104 mmol/L (96-109); Glucose 105 mg/dL (70-110); Potassium 4.0 mmol/L (3.5-5.5); Sodium 142 mmol/L (135-145); T4, Free (Free Thyroxine) 1.30 ng/dL (0.80-1.80)
== END | disposition home or self-care (01) ==
LOC: LABWHC1 15:39
PROVIDERS: ATTEND Internal Medicine
DX: R63.5 Abnormal weight gain (principal)
CPT/HCPCS: 36415; 80048; 84439; 84443